=== PATIENT | female | born 1975 | race Caucasian/White ===

== ENCOUNTER 2017-03-05 13:55 | Emergency (ER) | payer OTHER ==
[~2017-03-05] VITALS: Ht 160 cm; Wt 52.2 kg
[~2017-03-05 13:55] MED LIST: LAMO150T3 PO; NITR100C62 PO
--- NOTE | 2017-03-05 14:37 | PHYS DOC ---
Past Medical History Past Medical History: Seizure Past Surgical History: No Surgical History Alcohol Use: None Drug Use: None Adult General Chief Complaint Chief Complaint: SEIZURE HPI HPI Is a pleasant 41-year-old female who presents with a seizure today after she receiving a blow to the head will work. Several hours earlier patient was unloading a box of detergent from above her head when she was struck in the head and face by this box of detergent. She had no loss of conscious at the time and no nausea no vomiting no change in vision or change in speech. Sometime later patient began developing a headache in the left frontal area where she was struck by the box. She then was found unconscious having a generalized tonic-clonic seizure on the floor. She has these seizures infrequently infectious that she does not verbalize any seizure. She is on Lamictal daily she takes it religiously. She denies any neck pain, face pain other than the local swelling to the superior brow. She denies any chest pain, abdominal pain, nausea, vomiting, diarrhea diarrhea she denies any UTI symptomsstress at home denies any recent alcohol consumption or inability to sleep. She denies any URI symptoms or fevers chills or other complaints. Brought in by EMS although she does not remember the events of today she is oriented to her date of infectious children and she is not . Review of Systems Review of Systems Constitutional: Denies fever or chills [] Eyes: Denies change in visual acuity, redness, or eye pain [] HENT: Denies nasal congestion or sore throat [] Respiratory: Denies cough or shortness of breath [] Cardiovascular: No additional information not addressed in HPI [] GI: Denies abdominal pain, nausea, vomiting, bloody stools or diarrhea [] : Denies dysuria or hematuria [] Musculoskeletal: Denies back pain or joint pain [] Integument: Denies rash or skin lesions [] Neurologic: Point of a headache that began focally right after being struck in head by a box of detergent. Endocrine: Denies polyuria or polydipsia [] Allergies Allergies Allergies Coded Allergies Type Severity Reaction Last Updated Verified No Known Drug Allergies 02/10/16 No Physical Exam Physical Exam Vital signs reviewed by me otherwise normal with exception of tachycardia of 106. Constitutional: Well developed, well nourished, no acute distress, non-toxic appearance. [] HENT: Normocephalic, she has an area of abrasion to these. (The forehead and the upper brow. There is no obvious step-offs no crepitus patient is no midfacial instability likely [place] fracture. TMs are clear bilaterally oropharynx is clear to the tongue. External ears normal, oropharynx moist, no oral exudates, nose normal. She is a small linear abrasion on the inferior portion of the left cheek consistent with an abrasion secondary to her glasses from her face. [] Eyes: PERRLA, EOMI, conjunctiva normal, no discharge. [] Neck: Normal range of motion, no tenderness, supple, no stridor. [] Cardiovascular:Heart rate regular rhythm, no murmur [] Lungs & Thorax: Bilateral breath sounds clear to auscultation [] Skin: Warm, dry, no erythema, no rash. [] Back: No tenderness, no CVA tenderness. [] Extremities: No tenderness, no cyanosis, no clubbing, ROM intact, no edema. [] Neurologic: Alert and oriented X 3, normal motor function, normal sensory function, no focal deficits noted. [] Psychologic: Patient is lucid but not able to remember the events of the day. She is oriented to who she is aware she's had but does not remember her exact age but does remember her birthday. Current Patient Data Vital Signs Vital Signs Date Time Temp Pulse Resp B/P (MAP) Pulse Ox O2 Delivery O2 Flow Rate FiO2 03/05/17 16:01 66 20 107/64 (78) 99 Room Air 03/05/17 13:55 98.2 98.2 EKG EKG [] Radiology/Procedures Radiology/Procedures [] [facility] [address] [place] [address] IMAGING REPORT Signed PATIENT: NILA GARCIA ACCOUNT: [id number] : 1975 LOCATION: ER AGE: 41 SEX: F EXAM STATUS: REG ER ORD. PHYSICIAN: OLAYINKA BEDOLLA MD REASON: head injury and seizure PROCEDURE: CT HEAD WO CONTRAST Indication closed head injury. Noncontrast images of the head were obtained. Note is made of a previous examination 07/01/2007. No acute calvarial finding is seen. The visualized paranasal sinuses appear unremarkable. There is soft tissue swelling, compatible with hematoma formation, over the left forehead extending to the bridge of the nose. There is no subdural or epidural hematoma. The ventricles and sulci are normal. There is no mass or midline shift. No hemorrhage is seen. IMPRESSION: Intracranially no acute finding. PQRS Compliance Statement: One or more of the following individualized dose reduction techniques were utilized for this examination: 1. Automated exposure control 2. Adjustment of the mA and/or kV according to patient size 3. Use of iterative reconstruction technique DICTATED and SIGNED BY: OSBALDO CONNELLY MD DATE: 03/05/17 5822 CC: OLAYINKA BEDOLLA MD; NO PCP ~ Course & Med Decision Making Course & Med Decision Making Pertinent Labs and Imaging studies reviewed. (See chart for details) She presents with a head injury and a seizure after this head injury. She has a seizure disorder although she has no other risk factors for seizure disorder like medication noncompliance, fevers, UTI symptoms, a recent URI, her trauma is a likely statement for her seizures. Impression CT scan is unremarkable there is no step-off no evidence of fracture there is no evidence of intracranial injury or contusion to the brain. Impression: Closed head injury, seizure disorder, postictal state resolved [] Dragon Disclaimer Dragon Disclaimer This electronic medical record was generated, in whole or in part, using a voice recognition dictation system. Departure Departure Impression: Primary Impression: Seizure Additional Impressions: Closed head injury Facial contusion Disposition: 01 HOME, SELF-CARE Condition: IMPROVED Referrals: NO PCP (PCP) Patient Instructions: Facial or Scalp Contusion, Seizure Disorder, Child, Generalized Tonic-Clonic Additional Instructions: These return for any new or increasing symptoms or feel any questions or concerns. These return for any recurrent seizures despite being on Lamictal ensure that you take your medications as prescribed. Please return for any new focal neurologic deficits, increasing headache or is in vision with difficulty speaking. Scripts Acetaminophen (TYLENOL) 325 Mg Tablet 1-2 TAB PO QID, #60 TAB 2 Refills Prov: OLAYINKA BEDOLLA MD 03/05/17 Problem Qualifiers OLAYINKA BEDOLLA MD Mar 05, 2017 14:37
[2017-03-05 16:01] VITALS: BP 107/64
--- NOTE | 2017-03-05 16:23 | RAD ---
Indication closed head injury. Noncontrast images of the head were obtained. Note is made of a previous examination 07/01/2007. No acute calvarial finding is seen. The visualized paranasal sinuses appear unremarkable. There is soft tissue swelling, compatible with hematoma formation, over the left forehead extending to the bridge of the nose. There is no subdural or epidural hematoma. The ventricles and sulci are normal. There is no mass or midline shift. No hemorrhage is seen. IMPRESSION: Intracranially no acute finding. PQRS Compliance Statement: One or more of the following individualized dose reduction techniques were utilized for this examination: 1. Automated exposure control 2. Adjustment of the mA and/or kV according to patient size 3. Use of iterative reconstruction technique
[2017-03-05] MEDS ORDERED: ACET325T9 PO (16:32)
--- NOTE | 2017-03-06 06:53 | EKG ---
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
== END 2017-03-05 16:50 | disposition home or self-care (01) ==
LOC: ER 13:55
DX: S06.0X9A Concussion with loss of consciousness of unspecified duration, initial encounter (principal); S00.83XA Contusion of other part of head, initial encounter; G40.909 Epilepsy, unspecified, not intractable, without status epilepticus; R00.0 Tachycardia, unspecified; W22.8XXA Striking against or struck by other objects, initial encounter; Y93.89 Activity, other specified; Y92.89 Other specified places as the place of occurrence of the external cause; Y99.8 Other external cause status
CPT/HCPCS: 70450; 93005; 99284-25